=== PATIENT | male | born 1970 | race Caucasian/White ===

== ENCOUNTER 2018-06-20 12:09 | Emergency (ER) | payer MEDICARE ==
[2018-06-20] MEDS ORDERED: SODIUM CHLORIDE 0.9% 1,000 ML IV STA (12:22)
[2018-06-20] MEDS ORDERED: ONDANSETRON 4 MG/2 ML VIAL IVP STA (12:22)
[2018-06-20 12:50] LABS: BILIRUBIN,URINE NEGATIVE (NEGATIVE); GLUCOSE, URINE (UA) NEGATIVE (NEGATIVE); KETONES,URINE (UA) NEGATIVE (NEGATIVE); LEUKOCYTE ESTERASE, URINE NEGATIVE (NEGATIVE); NITRITE,URINE NEGATIVE (NEGATIVE); OCCULT BLOOD,URINE NEGATIVE (NEGATIVE); PROTEIN,URINE NEGATIVE (NEGATIVE); UROBILINOGEN,URINE 0.2 (NORMAL) E.U./dL (NORMAL)
--- NOTE | 2018-06-20 13:08 | ED Physician Documentation ---
History of Present Illness - Stated complaint Stated Complaint: WEAKNESS/VOMTING - Chief complaint Chief Complaint: Abd Pain - History obtained from History obtained from: Patient, Family - History of Present Illness Pain level max: 0 Pain level now: 0 - Additonal information Additional information: 48-year-old male with a history of bipolar disease who is currently homeless. He states that he normally lives in [place] but came appear to visit his family. His parents state that he is suicidal and not taking his psychiatric medicat ions. They want him evaluated for mental health placement. Patient adamantly denies feeling suicidal. Parent states that he laid down on the train tracks to try to kill himself, the patient denies this and states he was sleeping by the train tracks but not on the train tracks and that he has no interest in killing himself. He does want to return to [place] rather than live here. He has been taking his medications intermittently. He also states that he feels dehydrated and has not been eating and drinking well. Review of Systems Ten Systems: 10 systems reviewed and negative Constitutional: denies: Fever, Chills Nose: denies: Rhinorrhea / runny nose, Congestion Throat: denies: Sore throat Cardiac: denies: Chest pain / pressure Respiratory: denies: Cough, Wheezing Skin: denies: Rash Musculoskeletal: denies: Neck pain, Back pain Neurologic: denies: Headache PD PAST MEDICAL HISTORY - Past Medical History Past Medical History: Yes Cardiovascular: None Respiratory: None Neuro: Other Endocrine/Autoimmune: None GI: GERD : Renal insuffiency HEENT: None Psych: Depression, Anxiety, Panic attacks, ADD/ADHD Musculoskeletal: None Derm: None - Past Surgical History Past Surgical History: No - Present Medications Home Medications: Ambulatory Orders Medication Instructions Recorded Confirmed Omeprazole 20 mg PO 06/20/18 buPROPion [Wellbutrin Xl] 06/20/18 busPIRone [Buspar] 5 mg PO BID 06/20/18 06/20/18 - Allergies Allergies/Adverse Reactions: Allergies Allergy/AdvReac Type Severity Reaction Status Date / Time Penicillins Allergy Unknown Verified 06/20/18 12:20 - Social History Does the pt smoke?: Yes Smoking Status: Current every day smoker Does the pt drink ETOH?: Yes ETOH Use: Beer, Liquor Does the pt have substance abuse?: Yes Substance Use and Type: Marijuana, Meth - Immunizations Immunizations are current?: Yes - POLST Patient has POLST: No PD ED PE NORMAL - Vitals Vital signs reviewed: Yes - General General: Alert and oriented X 3, No acute distress, Well developed/nourished - HEENT HEENT: PERRL, Pharynx benign, Other (Dry lips and tongue) - Neck Neck: Supple, no meningeal sign - Cardiac Cardiac: RRR, No murmur, Strong equal pulses - Respiratory Respiratory: No respiratory distress, Clear bilaterally - Abdomen Abdomen: Soft, Non tender, Non distended - Derm Derm: Warm and dry - Extremities Extremities: No edema - Neuro Neuro: Alert and oriented X 3 - Psych Psych: Normal mood, Normal affect Results - Vitals Vitals: Vital Signs - 24 hr 06/20/18 06/20/18 12:14 21:30 Temperature 36.9 C Heart Rate 76 71 Respiratory 18 16 Rate Blood Pressure 135/84 H 125/90 H O2 Saturation 99 98 Oxygen O2 Source Room air - Labs Labs: Laboratory Tests 06/20/18 06/20/18 06/20/18 12:38 12:38 13:07 WBC 6.7 RBC 5.26 Hgb 15.6 Hct 44.8 MCV 85.0 MCH 29.6 MCHC 34.8 RDW 12.9 Plt Count 227 MPV 9.2 Neut # (Auto) 4.6 Lymph # (Auto) 1.3 L [place] # (Auto) 0.5 Eos # (Auto) 0.3 Baso # (Auto) 0.1 Absolute Nucleated RBC 0.00 Nucleated RBC % 0.0 Sodium Potassium Chloride Carbon Dioxide Anion Gap BUN Creatinine Estimated GFR (MDRD) Glucose Calcium Total Bilirubin AST ALT Alkaline Phosphatase Total Protein Albumin Globulin Albumin/Globulin Ratio Lipase TSH Urine Color YELLOW Urine Clarity HAZY Urine pH 8.0 H Ur Specific [place] 1.015 Urine Protein NEGATIVE Urine Glucose (UA) NEGATIVE Urine Ketones NEGATIVE Urine Occult Blood NEGATIVE Urine Nitrite NEGATIVE Urine Bilirubin NEGATIVE Urine Urobilinogen 0.2 (NORMAL) Ur Leukocyte Esterase NEGATIVE Urine RBC 0-5 Urine WBC 0-3 Ur Squamous Epith Cells RARE Squamous Urine Bacteria Rare Ur Microscopic Review INDICATED Urine Culture Comments NOT INDICATED Salicylates Urine Opiates Screen NEGATIVE Ur Oxycodone Screen NEGATIVE Urine Methadone Screen NEGATIVE Ur Propoxyphene Screen NEGATIVE Acetaminophen Ur Barbiturates Screen NEGATIVE Ur Tricyclics Screen NEGATIVE Ur Phencyclidine Scrn NEGATIVE Ur Amphetamine Screen NEGATIVE U Methamphetamines Scrn POSITIVE H U Benzodiazepines Scrn NEGATIVE Urine Cocaine Screen NEGATIVE U Cannabinoids Screen NEGATIVE Ethyl Alcohol 06/20/18 06/20/18 13:07 13:07 WBC RBC Hgb Hct MCV MCH MCHC RDW Plt Count MPV Neut # (Auto) Lymph # (Auto) [place] # (Auto) Eos # (Auto) Baso # (Auto) Absolute Nucleated RBC Nucleated RBC % Sodium 138 Potassium 3.7 Chloride 102 Carbon Dioxide 27 Anion Gap 9.0 BUN 17 Creatinine 0.7 Estimated GFR (MDRD) 121 Glucose 118 H Calcium 8.9 Total Bilirubin 0.8 AST 36 ALT 40 Alkaline Phosphatase 59 Total Protein 7.2 Albumin 3.8 Globulin 3.4 Albumin/Globulin Ratio 1.1 Lipase 47 TSH 0.39 Urine Color Urine Clarity Urine pH Ur Specific [place] Urine Protein Urine Glucose (UA) Urine Ketones Urine Occult Blood Urine Nitrite Urine Bilirubin Urine Urobilinogen Ur Leukocyte Esterase Urine RBC Urine WBC Ur Squamous Epith Cells Urine Bacteria Ur Microscopic Review Urine Culture Comments Salicylates < 6.0 Urine Opiates Screen Ur Oxycodone Screen Urine Methadone Screen Ur Propoxyphene Screen Acetaminophen < 10 L Ur Barbiturates Screen Ur Tricyclics Screen Ur Phencyclidine Scrn Ur Amphetamine Screen U Methamphetamines Scrn U Benzodiazepines Scrn Urine Cocaine Screen U Cannabinoids Screen Ethyl Alcohol < 5.0 PD MEDICAL DECISION MAKING - ED course Complexity details: reviewed results, re-evaluated patient, considered differential, d/w patient, d/w family ED course: 48-year-old male presents to the emergency department and does appear dehydrated. Feels better after IV fluids. Social work was consulted and with the patient and family both stated that he is having hallucinations and voices telling him to tell himself. He does not want to go into psychiatric care at this time, he wants to go back to [place]. He is not able to state that he will not harm himself based on the hallucinations. Therefore social work has contacted the [facility]. He is medically clear for psychiatric care at this time. Last methamphetamine use was several days ago Patient was evaluated by SHI Orellana who does not feel that he meets criteria to be held at this time. She will be discharging him to follow-up with his counselor. Patient counseled regarding signs and symptoms for which I believe and urgent re-evaluation would be necessary. Patient with good understanding of and agreement to plan and is comfortable going home at this time This document was made in part using voice recognition software. While efforts are made to proofread this document, sound alike and grammatical errors may occur. Departure - Departure Disposition: 01 Home, Self Care Clinical Impression: Bipolar disorder Qualifiers: Active/Remission status: currently active Current bipolar episode type: mixed Current episode severity: unspecified Qualified Code(s): F31.60 - Bipolar disorder, current episode mixed, unspecified Condition: Good Instructions: ED Manic Depression Follow-Up: Tasha Lovell ARNP [Primary Care Provider] - Within 1 week Comments: Follow up with your counselor within 3 days. Take your medications at home. A void methamphetamines.
[2018-06-20 13:11] LABS: BACTERIA,URINE Rare /HPF (None Seen); CLARITY,URINE HAZY (CLEAR); RBC,URINE 0-5 /HPF (0-5); SQUAMOUS EPITHELIAL CELL,UR RARE Squamous (<= Few)
[2018-06-20 13:22] LABS: BASOPHILS # (AUTO) 0.1 10^3/uL (0.0-0.1); BASOPHILS % (AUTO) 0.8 %; EOSINOPHILS # (AUTO) 0.3 10^3/uL (0.0-0.7); EOSINOPHILS % (AUTO) 4.1 %; HGB - HEMOGLOBIN 15.6 g/dL (14.0-18.0); LYMPHOCYTES # (AUTO) 1.3 10^3/uL (1.5-3.5); LYMPHOCYTES % (AUTO) 19.8 %; MEAN CORPUSCULAR HEMOGLOBIN 29.6 pg (27.0-31.0); MEAN CORPUSCULAR HGB CONC 34.8 g/dL (32.0-36.0); MEAN PLATELET VOLUME 9.2 fL (7.4-11.4); MONOCYTES # (AUTO) 0.5 10^3/uL (0.0-1.0); MONOCYTES % (AUTO) 6.9 %; NEUTROPHILS # (AUTO) 4.6 10^3/uL (1.5-6.6); NEUTROPHILS % (AUTO) 68.4 %; PLT - PLATELET COUNT 227 10^3/uL (130-450); RED BLOOD COUNT 5.26 10^6/uL (4.70-6.10); RED CELL DISTRIBUTION WIDTH 12.9 % (12.0-15.0); WHITE BLOOD COUNT 6.7 x10^3/uL (4.8-10.8)
[2018-06-20 13:38] LABS: ACETAMINOPHEN < 10 ug/mL (10-30); ALBUMIN 3.8 g/dL (3.2-5.5); ALBUMIN/GLOBULIN RATIO 1.1 (1.0-2.2); ALKALINE PHOSPHATASE 59 IU/L (42-121); ALT ALANINE AMINOTRANSFERASE 40 IU/L (10-60); AST ASPARTATE AMINOTRANSFERASE 36 IU/L (10-42); BILIRUBIN,TOTAL 0.8 mg/dL (0.2-1.0); BUN - BLOOD UREA NITROGEN 17 mg/dL (6-20); CALCIUM 8.9 mg/dL (8.5-10.3); CARBON DIOXIDE - CO2 27 mmol/L (21-32); CHLORIDE 102 mmol/L (101-111); CREATININE 0.7 mg/dL (0.6-1.2); GFR - MDRD 121 (>89); GLUCOSE 118 mg/dL (70-100); LIPASE 47 U/L (22-51); SALICYLATE < 6.0 mg/dL; SODIUM 138 mmol/L (135-145); TOTAL PROTEIN 7.2 g/dL (6.7-8.2)
[2018-06-20 14:00] LABS: MUDS CUTOFF CONCENTRATIONS CUTOFF CONC BELOW:
[2018-06-20 14:13] LABS: METHAMPHETAMINES SCREEN, URINE POSITIVE (NEGATIVE)
[2018-06-20 14:14] LABS: AMPHETAMINE SCREEN,URINE NEGATIVE (NEGATIVE); BENZODIAZEPINES SCREEN, URINE NEGATIVE (NEGATIVE); COCAINE SCREEN URINE NEGATIVE (NEGATIVE); METHADONE SCREEN, URINE NEGATIVE (NEGATIVE); OPIATE SCREEN, URINE NEGATIVE (NEGATIVE); OXYCODONE SCREEN, URINE NEGATIVE (NEGATIVE); PROPOXYPHENE SCREEN, URINE NEGATIVE (NEGATIVE); TRICYCLIC ANTIDEPRESSANT,URINE NEGATIVE (NEGATIVE)
[2018-06-20 21:31] VITALS: BP 125/90
== END 2018-06-20 21:38 | disposition home or self-care (01) ==
LOC: ED 12:09
DX: F31.60 Bipolar disorder, current episode mixed, unspecified (principal); F17.200 Nicotine dependence, unspecified, uncomplicated; Z59.0 Homelessness; E86.0 Dehydration
CPT/HCPCS: 36415; 80053; 80306; 80307; 80320; 80329; 81001; 81003; 83690; 84443; 85025; 87086; 96361; 96374; 99283

== ENCOUNTER 2018-06-21 02:48 | Outpatient (CLI) | payer MEDICARE | END 2018-06-21 02:49 | disposition critical access hospital (66) | LOC: EMS 02:48 | PROVIDERS: ATTEND Surgery | DX: R45.851 Suicidal ideations (principal) | CPT/HCPCS: A0425; A0429 ==

== ENCOUNTER 2018-06-21 03:17 | Emergency (ER) | payer MEDICARE ==
--- NOTE | 2018-06-21 05:59 | ED Physician Documentation ---
History of Present Illness - Stated complaint Stated Complaint: CHILLED - Chief complaint Chief Complaint: General - History obtained from History obtained from: Patient - History of Present Illness Timing: Today - Additonal information Additional information: 48-year-old male seen in the emergency department earlier today for mental health evaluation he is homeless and cold. He has returned to the emergency department by ambulance as he has no place to stay tonight. Review of Systems Constitutional: denies: Fever, Chills, Myalgias Eyes: denies: Decreased vision Ears: denies: Ear pain Nose: denies: Rhinorrhea / runny nose, Congestion Throat: denies: Sore throat Cardiac: denies: Chest pain / pressure, Palpitations Respiratory: denies: Dyspnea, Cough GI: reports: Abdominal Pain, Diarrhea. denies: Nausea, Vomiting : denies: Dysuria, Frequency PD PAST MEDICAL HISTORY - Past Medical History Cardiovascular: None Respiratory: None Neuro: Other Endocrine/Autoimmune: None GI: GERD : Renal insuffiency HEENT: None Psych: Depression, Anxiety, Panic attacks, ADD/ADHD Musculoskeletal: None Derm: None - Past Surgical History Past Surgical History: No - Present Medications Home Medications: Ambulatory Orders Medication Instructions Recorded Confirmed Omeprazole 20 mg PO 06/20/18 buPROPion [Wellbutrin Xl] 06/20/18 busPIRone [Buspar] 5 mg PO BID 06/20/18 06/20/18 - Allergies Allergies/Adverse Reactions: Allergies Allergy/AdvReac Type Severity Reaction Status Date / Time Penicillins Allergy Unknown Verified 06/20/18 12:20 - Social History Does the pt smoke?: Yes Smoking Status: Current every day smoker Does the pt drink ETOH?: Yes Does the pt have substance abuse?: Yes - Immunizations Immunizations are current?: Yes - POLST Patient has POLST: No PD ED PE NORMAL - Vitals Vital signs reviewed: Yes (hypertensive ) - General General: Alert and oriented X 3, No acute distress, Well developed/nourished - HEENT HEENT: Atraumatic, PERRL, EOMI, Ears normal, Moist mucous membranes, Pharynx benign - Neck Neck: Supple, no meningeal sign, No bony TTP - Cardiac Cardiac: RRR, No murmur - Respiratory Respiratory: No respiratory distress, Clear bilaterally - Back Back: No CVA TTP, No spinal TTP - Derm Derm: Normal color, Warm and dry, No rash - Extremities Extremities: No deformity, No edema - Neuro Neuro: Alert and oriented X 3, 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, No motor deficit, No sensory deficit, Normal speech Eye Opening: Spontaneous Motor: Obeys Commands Verbal: Oriented GCS Score: 15 - Psych Psych: Normal mood, Normal affect Results - Vitals Vitals: Vital Signs - 24 hr 06/21/18 03:25 Temperature 36.9 C Heart Rate 78 Respiratory 16 Rate Blood Pressure 154/100 H O2 Saturation 99 Oxygen O2 Source Room air PD MEDICAL DECISION MAKING - ED course Complexity details: reviewed old records, reviewed results, re-evaluated patient, considered differential, d/w patient ED course: 48-year-old homeless bipolar male was evaluated in the emergency department yesterday for psychiatric services and a plan was made to treat the patient as an outpatient and this plan has fallen apart. The patient does not have his medications they are with his mom currently in [place] and when he was discharged he went to [facility] and from there was transferred back to [facility] by ambulance, when he complained of abdominal pain. The patient clearly states that he is cold and wanted a place to stay and wants to consider inpatient psychiatric treatment to stabilize himself on his medications. He is given his morning medications and the social scientist is consulted in the case. I have re- examined the patient and he is medically cleared for psychiatric treatment as needed. Departure - Departure Clinical Impression: Bipolar disorder Qualifiers: Active/Remission status: currently active Current bipolar episode type: mixed Current episode severity: moderate Qualified Code(s): F31.62 - Bipolar disorder, current episode mixed, moderate Condition: Fair Instructions: ED Manic Depression Follow-Up: Tasha Lovell ARNP [Primary Care Provider] -
[2018-06-21] MEDS ORDERED: busPIRone 5 MG TABLET PO STA (06:51)
[2018-06-21] MEDS ORDERED: PANTOPRAZOLE 40 MG TABLET PO STA (06:52)
[2018-06-21] MEDS ORDERED: buPROPion XL 150 MG TABLET PO STA (06:52)
--- NOTE | 2018-06-21 10:37 | ED Physician Documentation ---
ED Addendum - Addendum Addendum: 06/21/18 10:36 The patient was seen by the GISELA Orellana and was felt to be not at risk for self- harm and not gravely disabled. She and social work were able to arrange a bed for him at the [facility] and he and his family are comfortable with that resolution. His parents are getting his medications to make sure he has them with him. He will go by cab with a voucher to their for ongoing care.
[2018-06-21 11:13] VITALS: BP 128/98
== END 2018-06-21 11:13 | disposition home or self-care (01) ==
LOC: EDUNIT# → ED 03:17
DX: F31.62 Bipolar disorder, current episode mixed, moderate (principal); Z59.0 Homelessness; F17.200 Nicotine dependence, unspecified, uncomplicated
CPT/HCPCS: 99283; A9270

== ENCOUNTER 2018-09-13 12:22 | Emergency (ER) | payer MEDICARE ==
[2018-09-13 14:03] LABS: BILIRUBIN,URINE NEGATIVE (NEGATIVE); CLARITY,URINE CLEAR (CLEAR); GLUCOSE, URINE (UA) NEGATIVE (NEGATIVE); KETONES,URINE (UA) NEGATIVE (NEGATIVE); LEUKOCYTE ESTERASE, URINE NEGATIVE (NEGATIVE); NITRITE,URINE NEGATIVE (NEGATIVE); OCCULT BLOOD,URINE NEGATIVE (NEGATIVE); PH,URINE 7.5 PH (5.0-7.5); PROTEIN,URINE NEGATIVE (NEGATIVE); UROBILINOGEN,URINE 0.2 (NORMAL) E.U./dL (NORMAL)
--- NOTE | 2018-09-13 14:30 | ED Physician Documentation ---
PD HPI ABD PAIN - Stated complaint Stated Complaint: ABD PAIN - Chief complaint Chief Complaint: Abd Pain - History obtained from History obtained from: Patient, Friend - History of Present Illness Timing - onset: How many years ago (3) Timing - duration: Weeks (1) Timing - details: Gradual onset, Still present Quality: Sharp, Pain Location: Epigastric, LUQ Radiation: No: Chest Improved by: Laying still Worsened by: Position, Palpation Associated symptoms: No: Fever, Nausea, Vomiting, Diarrhea, Constipation, Dysuria, Chest pain, Dizzy Similar symptoms before: No diagnosis Recently seen: Not recently seen - Additional information Additional information: 48-year-old male with a prior history of polysubstance abuse and ADHD has developed some abdominal pain over the past 3 years that is been periodic and this week it is particularly bad. He states it is become intolerable he feels bloated and has sharp mid abdominal pain. Review of Systems Constitutional: denies: Fever Eyes: denies: Decreased vision Ears: denies: Ear pain Nose: denies: Congestion Throat: denies: Sore throat Cardiac: denies: Chest pain / pressure, Palpitations Respiratory: denies: Dyspnea, Cough GI: reports: Abdominal Pain. denies: Nausea, Vomiting, Constipation, Diarrhea : denies: Dysuria, Frequency PD PAST MEDICAL HISTORY - Past Medical History Cardiovascular: None Respiratory: None Neuro: Other Endocrine/Autoimmune: None GI: GERD : Renal insuffiency HEENT: None Psych: Depression, Anxiety, Panic attacks, ADD/ADHD Musculoskeletal: None Derm: None - Past Surgical History Past Surgical History: No - Present Medications Home Medications: Ambulatory Orders Medication Instructions Recorded Confirmed RX: Omeprazole 20 mg PO DAILY 06/20/18 06/21/18 busPIRone [Buspar] 5 mg PO BID 06/20/18 06/21/18 RX: Atorvastatin Calcium 80 mg PO DAILY 06/21/18 06/21/18 RX: Gabapentin [Neurontin] 300 mg PO DAILY 06/21/18 06/21/18 buPROPion HCl [Bupropion HCl Sr] 200 mg PO DAILY 06/21/18 06/21/18 - Allergies Allergies/Adverse Reactions: Allergies Allergy/AdvReac Type Severity Reaction Status Date / Time Penicillins Allergy Unknown Verified 06/20/18 12:20 - Social History Does the pt smoke?: No Smoking Status: Never smoker Does the pt drink ETOH?: Yes Does the pt have substance abuse?: Yes Substance Use and Type: Meth - Immunizations Immunizations are current?: Yes - POLST Patient has POLST: No PD ED PE NORMAL - Vitals Vital signs reviewed: Yes (hypertensive ) - General General: Alert and oriented X 3, No acute distress, Well developed/nourished - HEENT HEENT: Atraumatic, PERRL, EOMI - Neck Neck: Supple, no meningeal sign, No bony TTP - Cardiac Cardiac: RRR, No murmur - Respiratory Respiratory: No respiratory distress, Clear bilaterally - Abdomen Abdomen: Normal bowel sounds, Soft, Non tender, Non distended, No organomegaly - Back Back: No CVA TTP, No spinal TTP - Derm Derm: Normal color, Warm and dry, No rash - Extremities Extremities: No deformity, No edema - Neuro Neuro: Alert and oriented X 3, 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, No motor deficit, No sensory deficit, Normal speech Eye Opening: Spontaneous Motor: Obeys Commands Verbal: Oriented GCS Score: 15 - Psych Psych: Normal mood, Normal affect Results - Vitals Vitals: Vital Signs - 24 hr 09/13/18 09/13/18 12:30 15:38 Temperature 36.4 C L Heart Rate 86 70 Respiratory 18 13 Rate Blood Pressure 132/108 H 133/88 H O2 Saturation 92 70 L Oxygen O2 Source Room air - Labs Labs: Laboratory Tests 09/13/18 09/13/18 09/13/18 13:30 14:50 14:50 WBC 7.6 RBC 5.55 Hgb 16.0 Hct 47.4 MCV 85.3 MCH 28.9 MCHC 33.9 RDW 13.5 Plt Count 206 MPV 9.3 Neut # (Auto) 5.0 Lymph # (Auto) 1.8 [place] # (Auto) 0.5 Eos # (Auto) 0.2 Baso # (Auto) 0.0 Absolute Nucleated RBC 0.00 Nucleated RBC % 0.0 Sodium 139 Potassium 3.6 Chloride 103 Carbon Dioxide 26 Anion Gap 10.0 BUN 10 Creatinine 0.7 Estimated GFR (MDRD) 121 Glucose 87 Calcium 9.1 Total Bilirubin 0.9 AST 30 ALT 35 Alkaline Phosphatase 58 Total Protein 6.6 L Albumin 4.3 Globulin 2.3 Albumin/Globulin Ratio 1.9 Lipase 29 Urine Color YELLOW Urine Clarity CLEAR Urine pH 7.5 Ur Specific [place] <=1.005 Urine Protein NEGATIVE Urine Glucose (UA) NEGATIVE Urine Ketones NEGATIVE Urine Occult Blood NEGATIVE Urine Nitrite NEGATIVE Urine Bilirubin NEGATIVE Urine Urobilinogen 0.2 (NORMAL) Ur Leukocyte Esterase NEGATIVE Ur Microscopic Review NOT INDICATED Urine Culture Comments NOT INDICATED - Rads (name of study) acute abdomen Radiology: Prelim report reviewed (Impression: Normal abdominal series including one view chest. No acute abnormality. No new with the peritoneum. No obstructive bowel loops.), EMP read indepedently, See rad report PD MEDICAL DECISION MAKING - ED course Complexity details: reviewed old records, reviewed results, re-evaluated patient, considered differential, d/w patient, d/w family ED course: 48-year-old male with chronic abdominal pain appears to have worse pain this past week on his plain film he appears to have a fair amount of stool and gas throughout the colon. Departure - Departure Disposition: 01 Home, Self Care Clinical Impression: Constipation Condition: Stable Instructions: ED Constipation Follow-Up: Serenity Pat DNP [Primary Care Provider] - Comments: Today it appears there is some constipation and the recommendation for this type of constipation is to take some Milk of Magnesia. This should result in stool output and improvement in symptoms. Discharge Date/Time: 09/13/18 15:38
--- NOTE | 2018-09-13 15:14 | XRAY Report ---
Reason: distention and pain Procedure Date: 09/13/2018 Accession Number: [id number] / [id number] Procedure: XR - Abdomen Acute CPT Code: FULL RESULT: EXAM: ABDOMINAL SERIES AND PA CHEST EXAM DATE: 09/13/2018 02:50 PM. CLINICAL HISTORY: Distention and pain. COMPARISON: None. TECHNIQUE: 2 views abdomen and 1 view chest. FINDINGS: CHEST: Lungs/Pleura: No focal opacities. No effusion or pneumothorax. Mediastinum: Within exam limitations, cardiomediastinal contour is normal. Multiple old healed left posterior fractures noted. ABDOMEN: Bowel Gas Pattern: Within normal limits. No dilated loops or abnormal fluid levels. Free Air: None. Other: None. IMPRESSION: Normal abdominal series (including 1-view chest). No acute abnormality. No pneumoperitoneum. No obstructive bowel loops. RADIA
[2018-09-13 15:26] LABS: BASOPHILS % (AUTO) 0.6 %; EOSINOPHILS # (AUTO) 0.2 10^3/uL (0.0-0.7); EOSINOPHILS % (AUTO) 3.2 %; LYMPHOCYTES # (AUTO) 1.8 10^3/uL (1.5-3.5); LYMPHOCYTES % (AUTO) 23.3 %; MEAN CORPUSCULAR HEMOGLOBIN 28.9 pg (27.0-31.0); MEAN CORPUSCULAR HGB CONC 33.9 g/dL (32.0-36.0); MEAN CORPUSCULAR VOLUME 85.3 fL (80.0-94.0); MEAN PLATELET VOLUME 9.3 fL (7.4-11.4); MONOCYTES # (AUTO) 0.5 10^3/uL (0.0-1.0); NEUTROPHILS % (AUTO) 65.9 %; PLT - PLATELET COUNT 206 10^3/uL (130-450); RED BLOOD COUNT 5.55 10^6/uL (4.70-6.10); RED CELL DISTRIBUTION WIDTH 13.5 % (12.0-15.0); WHITE BLOOD COUNT 7.6 x10^3/uL (4.8-10.8)
[2018-09-13 15:39] VITALS: BP 133/88
[2018-09-13 15:42] LABS: ALBUMIN 4.3 g/dL (3.2-5.5); ALBUMIN/GLOBULIN RATIO 1.9 (1.0-2.2); BILIRUBIN,TOTAL 0.9 mg/dL (0.2-1.0); CALCIUM 9.1 mg/dL (8.5-10.3); CREATININE 0.7 mg/dL (0.6-1.2); TOTAL PROTEIN 6.6 g/dL (6.7-8.2)
== END 2018-09-13 15:38 | disposition home or self-care (01) ==
LOC: ED 12:22
DX: K59.00 Constipation, unspecified (principal)
CPT/HCPCS: 36415; 74022; 80053; 81001; 81003; 83690; 85025; 87086; 99282; 99283

== ENCOUNTER 2019-03-19 13:48 | Outpatient (CLI) | payer MEDICARE, MEDICAID ==
[2019-03-19 18:42] LABS: BASOPHILS % (AUTO) 0.4 %; EOSINOPHILS # (AUTO) 0.2 10^3/uL (0.0-0.7); EOSINOPHILS % (AUTO) 2.4 %; HGB - HEMOGLOBIN 16.5 g/dL (14.0-18.0); LYMPHOCYTES # (AUTO) 1.7 10^3/uL (1.5-3.5); LYMPHOCYTES % (AUTO) 16.8 %; MEAN CORPUSCULAR HEMOGLOBIN 29.4 pg (27.0-31.0); MEAN CORPUSCULAR HGB CONC 33.1 g/dL (32.0-36.0); MEAN CORPUSCULAR VOLUME 88.8 fL (80.0-94.0); MEAN PLATELET VOLUME 11.7 fL (7.4-11.4); MONOCYTES # (AUTO) 0.6 10^3/uL (0.0-1.0); MONOCYTES % (AUTO) 5.9 %; NEUTROPHILS # (AUTO) 7.4 10^3/uL (1.5-6.6); PLT - PLATELET COUNT 292 10^3/uL (130-450); RED BLOOD COUNT 5.61 10^6/uL (4.70-6.10); RED CELL DISTRIBUTION WIDTH 12.8 % (12.0-15.0)
[2019-03-19 18:55] LABS: ALBUMIN 4.2 g/dL (3.2-5.5); ALBUMIN/GLOBULIN RATIO 1.4 (1.0-2.2); BILIRUBIN,TOTAL 0.5 mg/dL (0.2-1.0); CALCIUM 8.9 mg/dL (8.5-10.3); CREATININE 0.8 mg/dL (0.6-1.2); TOTAL PROTEIN 7.2 g/dL (6.7-8.2)
[2019-03-19 22:30] LABS: TRICHOMONAS VAGINALIS DNA NEGATIVE (NEGATIVE)
== END 2019-03-19 13:49 | disposition home or self-care (01) ==
LOC: LAB.S 13:48
PROVIDERS: ATTEND Family Medicine
DX: Z20.6 Contact with and (suspected) exposure to human immunodeficiency virus [HIV] (principal); R10.9 Unspecified abdominal pain; G89.29 Other chronic pain
CPT/HCPCS: 36415; 80053; 82150; 83690; 85025; 87491; 87591; 87661

== ENCOUNTER 2020-03-02 11:21 | Outpatient (CLI) | payer MEDICARE, MEDICAID ==
[2020-03-02 15:09] LABS: BASOPHILS # (AUTO) 0.1 10^3/uL (0.0-0.1); BASOPHILS % (AUTO) 0.8 %; EOSINOPHILS # (AUTO) 0.2 10^3/uL (0.0-0.7); EOSINOPHILS % (AUTO) 2.5 %; HGB - HEMOGLOBIN 15.9 g/dL (14.0-18.0); LYMPHOCYTES # (AUTO) 1.7 10^3/uL (1.5-3.5); LYMPHOCYTES % (AUTO) 22.6 %; MEAN CORPUSCULAR HEMOGLOBIN 29.1 pg (27.0-31.0); MEAN CORPUSCULAR HGB CONC 32.6 g/dL (32.0-36.0); MEAN CORPUSCULAR VOLUME 89.2 fL (80.0-94.0); MEAN PLATELET VOLUME 11.7 fL (7.4-11.4); MONOCYTES # (AUTO) 0.5 10^3/uL (0.0-1.0); MONOCYTES % (AUTO) 6.5 %; NEUTROPHILS # (AUTO) 4.9 10^3/uL (1.5-6.6); NEUTROPHILS % (AUTO) 66.9 %; PLT - PLATELET COUNT 259 10^3/uL (130-450); RED BLOOD COUNT 5.46 10^6/uL (4.70-6.10); RED CELL DISTRIBUTION WIDTH 12.6 % (12.0-15.0); WHITE BLOOD COUNT 7.3 x10^3/uL (4.8-10.8)
[2020-03-02 15:27] LABS: ALBUMIN 4.4 g/dL (3.2-5.5); ALBUMIN/GLOBULIN RATIO 1.5 (1.0-2.2); BILIRUBIN,TOTAL 0.7 mg/dL (0.2-1.0); CALCIUM 9.7 mg/dL (8.5-10.3); CREATININE 0.8 mg/dL (0.6-1.2); TOTAL PROTEIN 7.3 g/dL (6.7-8.2)
== END 2020-03-02 11:22 | disposition home or self-care (01) ==
LOC: LAB.S 11:21
PROVIDERS: ATTEND Physician Assistant
DX: R10.9 Unspecified abdominal pain (principal); F15.10 Other stimulant abuse, uncomplicated
CPT/HCPCS: 36415; 80053; 85025

== ENCOUNTER 2021-03-02 12:04 | Outpatient (CLI) | payer MEDICARE, MEDICAID ==
[2021-03-02 18:01] LABS: BASOPHILS # (AUTO) 0.1 10^3/uL (0.0-0.1); BASOPHILS % (AUTO) 0.6 %; EOSINOPHILS # (AUTO) 0.2 10^3/uL (0.0-0.7); EOSINOPHILS % (AUTO) 2.8 %; HCT - HEMATOCRIT 50.1 % (42.0-52.0); HGB - HEMOGLOBIN 16.2 g/dL (14.0-18.0); LYMPHOCYTES # (AUTO) 1.8 10^3/uL (1.5-3.5); LYMPHOCYTES % (AUTO) 21.6 %; MEAN CORPUSCULAR HEMOGLOBIN 29.3 pg (27.0-31.0); MEAN CORPUSCULAR HGB CONC 32.3 g/dL (32.0-36.0); MEAN CORPUSCULAR VOLUME 90.8 fL (80.0-94.0); MEAN PLATELET VOLUME 11.1 fL (7.4-11.4); MONOCYTES # (AUTO) 0.6 10^3/uL (0.0-1.0); MONOCYTES % (AUTO) 6.5 %; NEUTROPHILS # (AUTO) 5.8 10^3/uL (1.5-6.6); PLT - PLATELET COUNT 257 10^3/uL (130-450); RED BLOOD COUNT 5.52 10^6/uL (4.70-6.10); RED CELL DISTRIBUTION WIDTH 12.6 % (12.0-15.0); WHITE BLOOD COUNT 8.5 x10^3/uL (4.8-10.8)
[2021-03-02 18:21] LABS: ALBUMIN 4.4 g/dL (3.2-5.5); ALBUMIN/GLOBULIN RATIO 1.5 (1.0-2.2); BILIRUBIN,TOTAL 0.5 mg/dL (0.2-1.0); CALCIUM 9.5 mg/dL (8.5-10.3); CREATININE 0.7 mg/dL (0.6-1.2); POTASSIUM 4.4 mmol/L (3.5-5.0); TOTAL PROTEIN 7.4 g/dL (6.7-8.2)
[2021-03-02 22:07] LABS: CHLAMYDIA TRACHOMATIS DNA NEGATIVE (NEGATIVE); NEISSERIA GONORRHOEAE DNA NEGATIVE (NEGATIVE)
[2021-03-03 09:16] LABS: HEPATITIS C ANTIBODY NON-REACTIVE (NON-REACTIVE)
[2021-03-03 13:36] LABS: HIV AG/AB 4TH GEN NON-REACTIVE (NON-REACTIVE)
[2021-03-06 12:45] LABS: HSV 1 IGG TYPE SPECIFIC AB <0.90 index
== END 2021-03-02 23:59 ==
LOC: LAB.N 12:04
PROVIDERS: ATTEND Physician Assistant
DX: R10.11 Right upper quadrant pain (principal); Z20.2 Contact with and (suspected) exposure to infections with a predominantly sexual mode of transmission
CPT/HCPCS: 36415; 80053; 83690; 85025; 86592; 86695; 86696; 86803; 87491; 87591; G0475; 87389; 87661

== ENCOUNTER 2022-08-21 11:27 | Emergency (ER) | payer MEDICARE, MEDICAID ==
[2022-08-21] MEDS ORDERED: LORazepam 2 MG/ML VIAL IVP STA ×2 (11:45→12:43)
--- NOTE | 2022-08-21 11:47 | ED Physician Documentation ---
History of Present Illness - Stated complaint Stated Complaint: CHEST PX - Chief complaint Chief Complaint: Cardiac - Additonal information Additional information: Patient is a poor historian. Admits to recent methamphetamine use. 52-year-old male presents to the emergency department with reported left upper chest pain. He is anxious. He is crying. He is requesting that we not let him . He admits to smoking methamphetamine last night. He appears to be under the influence of what I believed to be meth at this time and he is uncertain if he used this morning. Admits to being homeless and usually staying in storage lockers. PD PAST MEDICAL HISTORY - Past Medical History Cardiovascular: None Respiratory: None Neuro: Other Endocrine/Autoimmune: None GI: GERD : Renal insuffiency HEENT: None Psych: Depression, Anxiety, Panic attacks, ADD/ADHD Musculoskeletal: None Derm: None - Past Surgical History Past Surgical History: No - Present Medications Home Medications: Ambulatory Orders Medication Instructions Recorded Confirmed No Known Home Medications 08/21/22 08/21/22 - Allergies Allergies/Adverse Reactions: Allergies Allergy/AdvReac Type Severity Reaction Status Date / Time Penicillins Allergy Unknown Verified 08/21/22 11:37 - Social History Does the pt smoke?: No Smoking Status: Never smoker Does the pt drink ETOH?: Yes Does the pt have substance abuse?: Yes - Immunizations Immunizations are current?: Yes - POLST Patient has POLST: No PD ED PE EXPANDED - General General: Alert, Anxious (Anxious appearing. Crying disheveled. Hyperactive motor movements.) - Cardiac Cardiac: Tachy, Radial strong equal, Cap refill < 2 sec. No: Murmur Present - Respiratory Respiratory: Clear to ausultation rossy. No: Distress, Labored - Abdomen Abdomen: Normal Bowel sounds. No: Tender to palpation - Derm Derm: Normal color, Warm and dry. No: Rash - Neuro Neuro: CNII-XII intact - GCS Eye Opening: Spontaneous Motor: Obeys Commands Verbal: Oriented Total: 15 - Psych Psych: Anxious (Anxious, crying, tearful.) Results - Vitals Vitals: Vital Signs - 24 hr 08/21/22 08/21/22 08/21/22 11:31 11:49 12:48 Temperature 36.1 C L Heart Rate 106 H 115 H 112 H Respiratory 20 27 H 20 Rate Blood Pressure 155/100 H 141/104 H 149/94 H O2 Saturation 100 99 99 Oxygen O2 Source Room air - EKG (time done) 1130 EKG releavant findings:: EKG personally interpreted by author of this note. Relevant findings are: Rate: Rate (enter#) (108) Rhythm: Sinus tachycardia [place]: Normal Intervals: Normal MN. No: Prolonged QT QRS: Normal Ischemia: Normal ST segments Compare to prior EKG: Old EKG unavailable Computer interpretation: Agree with computer - Labs Labs: Laboratory Tests 08/21/22 08/21/22 08/21/22 11:45 11:45 11:45 WBC 12.0 H RBC 5.07 Hgb 14.9 Hct 43.5 MCV 85.8 MCH 29.4 MCHC 34.3 RDW 13.0 Plt Count 292 MPV 10.5 Neut # (Auto) 9.3 H Lymph # (Auto) 1.5 [place] # (Auto) 1.0 Eos # (Auto) 0.1 Baso # (Auto) 0.0 Absolute Nucleated RBC 0.00 Nucleated RBC % 0.0 PT 12.1 INR 1.1 Sodium 138 Potassium 4.3 Chloride 100 L Carbon Dioxide 25 Anion Gap 13.0 BUN 27 H Creatinine 0.8 Estimated GFR (MDRD) 102 Glucose 83 Calcium 9.4 Total Bilirubin 0.9 AST 37 ALT 23 Alkaline Phosphatase 66 Troponin I High Sens Total Protein 7.7 Albumin 4.5 Globulin 3.2 Albumin/Globulin Ratio 1.4 Lipase 32 08/21/22 11:45 WBC RBC Hgb Hct MCV MCH MCHC RDW Plt Count MPV Neut # (Auto) Lymph # (Auto) [place] # (Auto) Eos # (Auto) Baso # (Auto) Absolute Nucleated RBC Nucleated RBC % PT INR Sodium Potassium Chloride Carbon Dioxide Anion Gap BUN Creatinine Estimated GFR (MDRD) Glucose Calcium Total Bilirubin AST ALT Alkaline Phosphatase Troponin I High Sens 6.7 Total Protein Albumin Globulin Albumin/Globulin Ratio Lipase - Rads (name of study) cxr Relevant Findings:: Final report received (No acute cardiopulmonary pathology) PD Medical Decision Making - ED course Complexity details: reviewed results, re-evaluated patient, considered differential, d/w patient ED course: 52-year-old male who is homeless and admits to very recent methamphetamine use presents to the emergency department for evaluation of left upper chest pain. It seems that it began last night. On presentation to the emergency department the patient is alert, though disheveled and homeless appearing he is otherwise feeling well. He is clearly however under the influence of an illicit substance which based on his history I believe to be methamphetamine. He does have a history of anxiety. He was initially crying and tearful. Given this I administered a single dose of Ativan 1 mg IV for anxiolysis purposes only. This seemed to help, but he was still anxious and therefore a second dose this time of 2 mg was adminiseredIV. With a history of methamphetamine use as well as chest pain our differentials included pneumothorax, pleural effusion, ACS, pneumonia, aortic dissection and PE His EKG was mild sinus tachycardia But was nonischemic. Given the duration of chest pain since last night a single troponin was obtained and is negative. Given the duration of symptoms NSTEMI/STEMI is effectively ruled out. Chest x- ray shows no findings of pneumothorax, pneumonia, pleural effusion. Cannot PERC negative given age and mildly elevated heart rate but by Wells criteria would be considered low risk for PE. History is also not consistent with an aortic dissection. No radiation of pain to the back. I did obtain a CBC and electrolytes. Per my interpretation mild leukocytosis noted. Given the lack of fever or focal findings on chest x-ray this likely represents a marginalization. His electrolytes were otherwise unremarkable. He is noted to have some mild tachycardia and hypertension, which is not unexpected given the history of meth use I discussed with the patient that I felt likely etiology of his symptoms stand from methamphetamine use. He was in agreement. We discussed if he would be interested in going to detox through [facility]. He did acquiesced to a phone call to determine if he would be appropriate. However unfortunately [facility] did not have any beds available. The patient does not want to leave the [facility] for detox. I sat with the patient and discussed his reason for the ED visit. He is anxious wanted reassurance that he is okay. He specifically denies thoughts of harm to himself or others. I encouraged him to consider following up with [facility] for detox when he was ready to stop using methamphetamine. Pt felt ready to be discharged and requested to leave the ED. He was also dispensed with a Narcan nasal spray. He specifically denies opioid use i.e. heroin or fentanyl with me, however, I still feel that he would be high risk for overdose should he encounter methamphetamine mixed with fentanyl or similar; thus the spray was dispensed. The usual emergent return precautions were discussed Departure - Departure Disposition: 01 Home, Self Care Clinical Impression: Methamphetamine abuse Chest pain Qualifiers: Chest pain type: unspecified Qualified Code(s): R07.9 - Chest pain, unspecified Condition: Stable Record reviewed to determine appropriate education?: Yes Instructions: Abuse Meth Abuse and Addiction Comments: Ruslan daugherty came to the emergency department anxious and with chest pain. You admitting to smoking methamphetamine. Your labs and EKG did not show any worrisome problems. You are not having a heart attack. I encourage you to call the [facility] detox facility when you are ready to stop using methamphetamine. They can help you safely detox from this drug. I am also sending you away from the ER with a prescription for Narcan. This is a nasal spray that can be used in the event of opioid overdose. Opioids like heroin and fentanyl can cause you to stop breathing. You deny using these medications to me, however some times these types of drugs are also mixed with methamphetamine. Discharge Date/Time: 08/21/22 13:35
[2022-08-21 11:51] LABS: BASOPHILS % (AUTO) 0.3 %; EOSINOPHILS # (AUTO) 0.1 10^3/uL (0.0-0.7); EOSINOPHILS % (AUTO) 0.5 %; HCT - HEMATOCRIT 43.5 % (42.0-52.0); HGB - HEMOGLOBIN 14.9 g/dL (14.0-18.0); LYMPHOCYTES # (AUTO) 1.5 10^3/uL (1.5-3.5); LYMPHOCYTES % (AUTO) 12.6 %; MEAN CORPUSCULAR HEMOGLOBIN 29.4 pg (27.0-31.0); MEAN CORPUSCULAR HGB CONC 34.3 g/dL (32.0-36.0); MEAN CORPUSCULAR VOLUME 85.8 fL (80.0-94.0); MEAN PLATELET VOLUME 10.5 fL (7.4-11.4); NEUTROPHILS # (AUTO) 9.3 10^3/uL (1.5-6.6); NEUTROPHILS % (AUTO) 78.2 %; PLT - PLATELET COUNT 292 10^3/uL (130-450); RED BLOOD COUNT 5.07 10^6/uL (4.70-6.10)
[2022-08-21] MEDS ORDERED: SODIUM CHLORIDE 0.9% 1,000 ML IV STA (11:53)
[2022-08-21 11:58] LABS: INR 1.1 (0.8-1.2); PT - PROTHROMBIN TIME 12.1 secs (9.9-12.6)
--- NOTE | 2022-08-21 12:02 | XRAY Report ---
PROCEDURE: Chest 1 View X-Ray INDICATIONS: Chest Pain TECHNIQUE: One view of the chest was acquired. COMPARISON: None. FINDINGS: Surgical changes and devices: None. Lungs and pleura: No pleural effusions or pneumothorax. Lungs are clear. Mediastinum: Mediastinal contours appear normal. Heart size is normal. Bones and chest wall: No suspicious bony lesions. Overlying soft tissues appear unremarkable. IMPRESSION: No acute cardiopulmonary pathology. Reviewed by: Yovany Brown MD on 08/21/2022 12:01 PM PDT Approved by: Yovany Brown MD on 08/21/2022 12:01 PM PDT Station ID: [id number]
[2022-08-21 12:03] LABS: ALBUMIN 4.5 g/dL (3.2-5.5); ALBUMIN/GLOBULIN RATIO 1.4 (1.0-2.2); BILIRUBIN,TOTAL 0.9 mg/dL (0.2-1.0); CALCIUM 9.4 mg/dL (8.5-10.3); CREATININE 0.8 mg/dL (0.6-1.2); POTASSIUM 4.3 mmol/L (3.5-5.0); TOTAL PROTEIN 7.7 g/dL (6.7-8.2)
[2022-08-21 12:51] VITALS: BP 149/94
[2022-08-21] MEDS ORDERED: NALOXONE HCL NASAL SPRAY KIT NAS STA (12:59)
== END 2022-08-21 13:35 | disposition home or self-care (01) ==
LOC: ED 11:27
DX: F15.10 Other stimulant abuse, uncomplicated (principal); R07.9 Chest pain, unspecified; Z59.00 Homelessness unspecified
CPT/HCPCS: 36415; 71045; 80053; 83690; 84484; 85025; 85610; 93005; 96361; 96374; 96376; 99284; G2215; J2060

== ENCOUNTER 2022-10-01 06:03 | Emergency (ER) | payer MEDICARE, MEDICAID ==
[2022-10-01 06:30] VITALS: BP 133/82
== END 2022-10-01 06:34 | disposition left against medical advice (07) ==
LOC: ED 06:03
DX: Z53.21 Procedure and treatment not carried out due to patient leaving prior to being seen by health care provider (principal)

== ENCOUNTER 2023-01-02 08:00 | Outpatient (CLI) | payer MEDICARE, MEDICAID | END 2023-01-02 23:59 | disposition home or self-care (01) | LOC: LAB.S 08:00 | PROVIDERS: ATTEND Registered Nurse | DX: H53.9 Unspecified visual disturbance (principal); R20.2 Paresthesia of skin | CPT/HCPCS: 82962 ==

== ENCOUNTER 2023-01-03 08:37 | Outpatient (CLI) | payer MEDICARE, MEDICAID | END 2023-01-03 08:38 | disposition home or self-care (01) | LOC: LAB.S 08:37 | PROVIDERS: ATTEND Registered Nurse | DX: R42 Dizziness and giddiness (principal); R53.83 Other fatigue; H53.9 Unspecified visual disturbance; R20.2 Paresthesia of skin | CPT/HCPCS: 36415; 80053; 83036; 85025 ==